=== PATIENT | male | born 1975 | race Caucasian/White ===

== ENCOUNTER 2020-10-14 02:11 | Emergency (ER) | payer BC, OTHER ==
[~2020-10-14] VITALS: Ht 172.7 cm; Wt 70.0 kg
[2020-10-14] MEDS ORDERED: CONTRAST GIVEN. MC PRN (02:45)
--- NOTE | 2020-10-14 02:46 | PHYS DOC ---
Adult General Chief Complaint Chief Complaint: PAIN CONTROL HPI HPI Patient is a 45-year-old male who presents with a chief complaint of back and leg pain. States that he had a lumbar spinal fusion and debridement last week and since then has been having pain in his low back and leg, 8 out of 10, sharp in nature. States he called his surgeon and saw him on Thursday and asked for more pain meds but was denied. States he has been taking oxycodone at home as prescribed with only minimal relief. Denies any new traumas, illnesses, fevers, chest pain, shortness of breath, nausea, vomiting. Denies any numbness/weakness/tingling. Denies any urinary retention or incontinence Review of Systems Review of Systems Review of systems otherwise unremarkable except noted in HPI Current Medications Current Medications Current Medications Medications (Trade) Dose Ordered Sig/Don Start Time Stop Time Status Last Admin Dose Admin Iohexol (Omnipaque 300 Mg/ml) 75 ml 1X ONCE 10/14/20 02:45 10/14/20 02:46 UNV Morphine Sulfate (Morphine 4mg Syringe) 6 mg 1X ONCE 10/14/20 03:00 10/14/20 03:01 Allergies Allergies Allergies Coded Allergies Type Severity Reaction Last Updated Verified No Known Drug Allergies 10/14/20 No Physical Exam Physical Exam Constitutional: Well developed, well nourished, no acute distress, non-toxic appearance. [] HENT: Normocephalic, atraumatic, bilateral external ears normal, oropharynx moist, no oral exudates, nose normal. [] Eyes: conjunctiva normal, no discharge. [] Neck: Normal range of motion, no tenderness, Cardiovascular: Tachycardia Lungs & Thorax: Bilateral breath sounds clear to auscultation [] Abdomen: soft, no tenderness, no masses, no pulsatile masses. [] Skin: Warm, dry, no erythema, no rash. [] Back: Patient wound appears clean dry and intact however does have significant swelling underneath the wound and is exquisitely tender per patient. Patient states that when he touched the wound the pain radiates to his right leg. Extremities: No tenderness, no cyanosis, no clubbing, ROM intact, no edema. [] Neurologic: Alert and oriented X 3, normal motor function, normal sensory function, no focal deficits noted. [] Psychologic: Affect normal, judgement normal, mood normal. [] Current Patient Data Lab Results Laboratory Tests Test 10/14/20 02:31 White Blood Count 11.6 x10^3/uL (4.0-11.0) Red Blood Count 4.88 x10^6/uL (4.30-5.70) Hemoglobin 14.3 g/dL (13.0-17.5) Bedside Hemoglobin 15.3 gm/dL Hematocrit 44.3 % (39.0-53.0) Bedside Hematocrit 45 % Mean Corpuscular Volume 91 fL (79-100) Mean Corpuscular Hemoglobin 29 pg (25-35) Mean Corpuscular Hemoglobin Concent 32 g/dL (31-37) Red Cell Distribution Width 13.4 % (11.5-14.5) Platelet Count 383 x10^3/uL (140-400) Neutrophils (%) (Auto) 63 % (31-73) Lymphocytes (%) (Auto) 24 % (24-48) Monocytes (%) (Auto) 7 % (0-9) Eosinophils (%) (Auto) 5 % (0-3) Basophils (%) (Auto) 1 % (0-3) Neutrophils # (Auto) 7.3 x10^3uL (1.8-7.7) Lymphocytes # (Auto) 2.8 x10^3/uL (1.0-4.8) Monocytes # (Auto) 0.9 x10^3/uL (0.0-1.1) Eosinophils # (Auto) 0.6 x10^3/uL (0.0-0.7) Basophils # (Auto) 0.1 x10^3/uL (0.0-0.2) Bedside Sodium 139 mmol/L (135-145) Bedside Potassium 3.5 mmol/L (3.5-5.0) Bedside Chloride 102 mmol/L (98-110) Bedside Total CO2 27 mmol/L (23-32) Anion Gap 15 mmol/L (6-14) Bedside Blood Urea Nitrogen 15 mg/dL (8-26) Bedside Creatinine 0.6 mg/dL (0.5-1.4) Glucose Level 111 mg/dL (60-99) Lactic Acid Level 1.9 mmol/L (0.4-2.0) Bedside Ionized Calcium (Alex) 1.21 mmol/L (1.13-1.32) EKG EKG [] Radiology/Procedures Radiology/Procedures []T lumbar spine with contrast PQRS statement: CT scans at this facility use dose reduction including either automated exposure control, iterative reconstructions, and /or weight based radiation dosing via mA and kV modification when appropriate to reduce radiation dose to as low as reasonably achievable. Contrast: 75 mL Omnipaque 300 intravenous contrast HISTORY: Low back pain radiating into the right leg, status post lumbar spinal surgery 5 days ago. COMPARISON: CT lumbar spine September 25, 2020. FINDINGS: Lumbar vertebral body height and alignment intact. Postoperative change of L4 laminectomy and probable left L4-L5 foraminotomy, and fusion with bilateral pedicle screws and rods at L4-L5. The right L4 pedicle screw is medial of the pedicle and crosses the right lateral recess of the spinal canal at the general anatomic region of the descending right L5 nerve. Grade 1 anterolisthesis of L4 on L5 and advanced disc disease with disc height loss and bony sclerosis and sizable disc osteophyte as well as bilateral L4-5 facet spurring contributing to femoral stenotic disease stable. Indistinct soft tissue density at the L4 laminectomy presumably enhancing granulation/developing scar tissue. There is no discrete drainable fluid collection. There is dependent soft tissue edema. No acute fracture. Bilateral L4 chronic spondylolysis defects and demonstrated. IMPRESSION: Bilateral L4 chronic spondylolysis defects and grade 1 anterolisthesis of L4 on L5 associated with advanced disc disease and facet arthritis again demonstrated. Interval postoperative changes of L4 laminectomy, left L4-L5 foraminotomy and fusion with bilateral pedicle screws and rods at L4- L5. The right L4 pedicle screw is positioned medial of the pedicle traversing the right lateral recess of the spinal canal at the anatomic region of the descending right L5 nerve. No acute osseous injury. See above. Electronically signed by: Carlos Eduardo Dodson MD (10/14/2020 3:46 AM) [facility] Heart Score Risk Factors: Risk Factors: DM, Current or recent (<one month) smoker, HTN, HLP, family history of CAD, obesity. Risk Scores: Risk Factors: DM, Current or recent (<one month) smoker, HTN, HLP, family history of CAD, obesity. Course & Med Decision Making Course & Med Decision Making Patient is a 45-year-old male status post spinal fusion procedure last week who presents with back and leg pain Vital signs notable for tachycardia and hypertension. Physical exam noted above. Patient placed on the monitor with IV access established. Given morphine for pain. CT noted above with possible misalignment of screw. Patient up to 12 mg of morphine still complaining of 8 out of 10 pain. Called and discussed patient condition with patient's neurosurgeon. Neurosurgeon, Dr. Arredondo who graciously agreed to accept patient back to his service for continued evaluation and treatment. [] Dragon Disclaimer Dragon Disclaimer This electronic medical record was generated, in whole or in part, using a voice recognition dictation system. Departure Departure: Impression: Primary Impression: Back pain Additional Impression: Postoperative pain after spinal surgery Disposition: 02 DC/TRF OTHER SHORT TERM HOS Condition: STABLE Problem Qualifiers DHARMESH MENON MD Oct 14, 2020 02:46
[2020-10-14] MEDS ORDERED: IOHEXOL 300 MG/ML 75 ML VIAL. IV ONE (03:00)
[2020-10-14] MEDS ORDERED: MORPHINE SULFATE 4 MG/ML DISP.SYRIN. IV ONE (03:00)
[2020-10-14 03:07] LABS: BASO # 0.1 x10^3/uL (0.0-0.2); BASO % 1 % (0-3); EOS # 0.6 x10^3/uL (0.0-0.7); EOS % 5 % (0-3); HEMATOCRIT 44.3 % (39.0-53.0); HEMOGLOBIN 14.3 g/dL (13.0-17.5); LYMPH # 2.8 x10^3/uL (1.0-4.8); LYMPH % 24 % (24-48); MEAN CORPUSCULAR HEMOGLOBIN 29 pg (25-35); MEAN CORPUSCULAR HGB CONC 32 g/dL (31-37); MEAN CORPUSCULAR VOLUME 91 fL (79-100); MONO # 0.9 x10^3/uL (0.0-1.1); MONO % 7 % (0-9); NEUT # 7.3 x10^3uL (1.8-7.7); NEUT % 63 % (31-73); PLATELET COUNT 383 x10^3/uL (140-400); RED BLOOD COUNT 4.88 x10^6/uL (4.30-5.70); RED CELL DISTRIBUTION WIDTH 13.4 % (11.5-14.5); WHITE BLOOD COUNT 11.6 x10^3/uL (4.0-11.0)
[2020-10-14 03:14] LABS: HEMOGLOBIN ISTAT 15.3 gm/dL; POTASSIUM ISTAT 3.5 mmol/L (3.5-5.0)
[2020-10-14] MEDS ORDERED: MORPHINE SULFATE 2 MG/ML DISP.SYRIN. IV ONE ×2 (03:30→05:00)
[2020-10-14] MEDS ORDERED: ACETAMINOPHEN 500 MG TABLET PO ONE (03:30)
--- NOTE | 2020-10-14 03:53 | RAD ---
CT lumbar spine with contrast PQRS statement: CT scans at this facility use dose reduction including either automated exposure cont rol, iterative reconstructions, and /or weight based radiation dosing via mA and kV modification when appropriate to reduce radiation dose to as low as reasonably achievable. Contrast: 75 mL Omnipaque 300 intravenous contrast HISTORY: Low back pain radiating into the right leg, status post lumbar spinal surgery 5 days ago. COMPARISON: CT lumbar spine September 25, 2020. FINDINGS: Lumbar vertebral body height and alignment intact. Postoperative change of L4 laminectomy a nd probable left L4-L5 foraminotomy, and fusion with bilateral pedicle screws and rods at L4-L5. The right L4 pedicle screw is medial of the pedicle and crosses the right lateral recess of the spinal ca nal at the general anatomic region of the descending right L5 nerve. Grade 1 anterolisthesis of L4 on L5 and advanced disc disease with disc height loss and bony sclerosis and sizable disc osteophyte as well as bilateral L4-5 facet spurring contributing to femoral stenotic disease stable. Indistinct so ft tissue density at the L4 laminectomy presumably enhancing granulation/developing scar tissue. Ther e is no discrete drainable fluid collection. There is dependent soft tissue edema. No acute fracture. Bilateral L4 chronic spondylolysis defects and demonstrated. IMPRESSION: Bilateral L4 chronic spondylolysis defects and grade 1 anterolisthesis of L4 on L5 associ ated with advanced disc disease and facet arthritis again demonstrated. Interval postoperative change s of L4 laminectomy, left L4-L5 foraminotomy and fusion with bilateral pedicle screws and rods at L4- L5. The right L4 pedicle screw is positioned medial of the pedicle traversing the right lateral reces s of the spinal canal at the anatomic region of the descending right L5 nerve. No acute osseous injur y. See above. Electronically signed by: Carlos Eduardo Dodson MD (10/14/2020 3:46 AM) [facility]
[2020-10-14] MEDS ORDERED: KETOROLAC 15 MG/ML VIAL. IVP ONE (05:00)
[2020-10-14 05:22] VITALS: BP 153/94
== END 2020-10-14 06:25 | disposition left against medical advice (07) ==
LOC: ER 02:11
DX: M54.5 Low back pain (principal); G89.18 Other acute postprocedural pain; R60.0 Localized edema
CPT/HCPCS: 36415; 72132; 80047; 83605; 85025; 96374; 96375; 96376; 99285; J1885; J2270; Q9967